=== PATIENT | female | born 1950 | race Caucasian/White ===

== ENCOUNTER → 2016-10-02 | Outpatient (CLI) | payer OTHER ==
[~2016-10-02] MED LIST: ALPRAZOLAM ER1 MG PO; AMBIEN PO; AMBIEN10 MG PO; BENTYL20 MG DOB; CALTRATE PLUS T1 TAB PO; CIPRO PO; CYANOCOBALAM1000 MCG PO; CYMBALTA PO; ENDOCET 10-3251 TAB PO; ESTRACE PO; ESTRACE42.5 GM VG; IMITREX IJ; IMITREX4 MG/0.5 M SQ; LAMICTAL150 MG PO; LAMOTRIGINE150 MG PO; LISINOPRIL-HCTZ1 T14 PO; LISINOPRIL30 MG PO; MELOXICAM15 MG PO; MOBIC15 MG PO; NORVASC PO; NORVASC10 MG PO; NYSTOP; PERCOCET 10-651 EACH PO; PHENERGAN25 MG PO; ROBAXIN 750750 M1 PO; ROBAXIN 750750 MG PO; ROBAXIN500 MG PO; SEROQUEL PO; SEROQUEL300 M1 PO; SUMATRIPTAN SU100 MG PO; TOPAMAX PO; TOPIRAGEN100 MG PO; VICODIN 5/500 T1 TAB PO; XANAX1 MG PO; ZOFRAN ODT4 MG PO; ZOLOFT PO; ZOLOFT100 MG PO; ZOLPIDEM TARTRA10 M1 PO; [UNRECOGNIZED DRUG - OTHER] PO
--- NOTE | ~2016-10-02 | CR63 ---
[facility] A Service of [facility] & [facility] / [facility] RADIOLOGY TEXT RESULTS PATIENT: PEDRO SHELLEY LOCATION: [facility] : 46 UNIT #: [id number] AGE: [address]: Delon Noe MD SEX: F ORDER DR: [id number] [facility] [address] [place], [place] [address] [id number] O MR#: [id number] Acc #: [id number] NAME: PEDRO SHELLEY : 1950 SEX: F STUDY DATE/TIME: 10/02/2016 15:06 UNIT: [facility] ROOM: STUDY DESCRIPTION: CR Chest 2 View Attending Physician: Delon Noe M.D. Referring Physician: Delon Noe M.D. Ordering Physician: Delon Noe M.D. Primary Care Physician: Arnulfo Gonsales M.D. MEDICAL IMAGING REPORT This report is preliminary unless electronic signature is present EXAM Chest, 10/02/2016; [facility]. HISTORY 66-year-old woman unexplained cough, short of air. Symptoms x9 weeks. COMPARISON Comparison chest 07/15/2013. FINDINGS Two-view chest demonstrates normal cardiac size and configuration. Hilar structures and mediastinal contours are preserved. Bilateral lungs are expanded and clear. IMPRESSION Negative chest. No acute finding. Dictated by... Jarred Donaldson M.D. THIS IS AN ELECTRONICALLY VERIFIED REPORT Jarred Donaldson M.D. at 10/03/2016 10:43 AM Maggie TD: 10/02/2016 19:55 JOB #: [id number] MEDICAL IMAGING REPORT Page 1 of 1 COPY
== END | disposition home or self-care (01) ==
LOC: CRAD 14:21
DX: R05 Cough (principal)
CPT/HCPCS: 71020